=== PATIENT | male | born 1970 | race Caucasian/White ===

== ENCOUNTER 2023-07-30 06:32 | Emergency (ER) | payer MEDICAID ==
[~2023-07-30] VITALS: Ht 162.6 cm; Wt 61.0 kg
[2023-07-30 06:40] VITALS: BP 151/91; PULSE 104; RESP 12; TEMP 98; O2SAT 99
[2023-07-30] MEDS: LIDOCAINE HCL 1% 20ML VIAL (Pyxis) INJ INFIL ONE (07:00)
[2023-07-30] MEDS: TETANUS, DIPHTHERIA, PERTUSSIS VAC/PF 0.5ML (>10YR OLD) IM ONE (07:00)
[2023-07-31] MEDS ORDERED: NAPR-1176 MT (01:54)
[2023-07-31] MEDS ORDERED: OFLO5DRO4 LEFT EAR (02:22)
== END 2023-07-31 02:51 | disposition home or self-care (01) ==
LOC: ER 06:32
DX: S01.319A Laceration without foreign body of unspecified ear, initial encounter (principal); X58.XXXA Exposure to other specified factors, initial encounter; Y93.89 Activity, other specified; Y92.89 Other specified places as the place of occurrence of the external cause; Y99.8 Other external cause status
CPT/HCPCS: 70450; 70486; 90715; 90471; 99285; J3490; Z7610 ×3